=== PATIENT | male | born 1940 | race Caucasian/White ===

== ENCOUNTER 2023-08-03 15:39 | Outpatient (CLI) | payer MEDICARE ==
[2023-08-04] MEDS ORDERED: LOSA1TAB39 PO (18:46)
[2023-08-04] MEDS ORDERED: ATOR40TA72 PO (18:46)
[2023-08-04] MEDS ORDERED: MELO-102 PO (18:46)
[2023-08-04] MEDS ORDERED: CEPH-585 PO (18:46)
[2023-08-04] MEDS ORDERED: DICY-19 PO (18:46)
[2023-08-04] MEDS ORDERED: LEVO25TA7 PO (18:46)
== END 2023-08-03 23:59 | disposition home or self-care (01) ==
LOC: RAD 15:39
PROVIDERS: ATTEND Internal Medicine
DX: R10.33 Periumbilical pain (principal); I51.7 Cardiomegaly; Z90.49 Acquired absence of other specified parts of digestive tract
CPT/HCPCS: 74176

== ENCOUNTER 2023-08-04 14:28 | Inpatient (IN) | payer MEDICARE ==
[~2023-08-04] VITALS: Ht 165.1 cm; Wt 79.5 kg
[2023-08-04] VITALS (13 sets, daily range): BP systolic 97–160; BP diastolic 48–93; PULSE 61–82; RESP 15–20; TEMP 98.5; O2SAT 93–98
[2023-08-04] MEDS ORDERED: piperacillin/tazo 4.5gm/100ml 100 ML IV ONE (15:00)
[2023-08-04] MEDS ORDERED: diltiazem 5mg/ml 5ml inj. IV ONE (16:00)
[2023-08-04] MEDS ORDERED: normal saline 500ml IV soln 500 ML IV ONE (16:00)
[2023-08-04 16:58] LABS: BASOPHILS # (AUTO) 0.1 X10'3 (0-0.2); BASOPHILS % (AUTO) 0.6 % (0-1); EOSINOPHILS % (AUTO) 0.2 % (0-6); HEMATOCRIT 40.8 % (42.0-52.0); HEMOGLOBIN 13.7 g/dl (14.0-17.9); LYMPHOCYTES # (AUTO) 1.1 X10'3 (1.1-4.8); LYMPHOCYTES % (AUTO) 12.6 % (21-51); MEAN CORPUSCULAR HEMOGLOBIN 29.8 PG (27.0-31.0); MEAN CORPUSCULAR HGB CONC 33.5 g/dL (33.0-36.5); MEAN CORPUSCULAR VOLUME 88.9 FL (78-98); MEAN PLATELET VOLUME 9.3 FL (7.4-10.4); MONOCYTES # (AUTO) 0.7 X10'3 (0-0.9); MONOCYTES % (AUTO) 7.9 % (2-12); NEUTROPHILS % (AUTO) 78.7 % (42-75); PLATELET COUNT 151 X10'3 (140-440); RED BLOOD COUNT 4.58 X10'6 (4.70-6.10); RED CELL DISTRIBUTION WIDTH 12.9 % (11.5-14.5); WHITE BLOOD COUNT 8.9 X10'3 (4.5-11.0)
[2023-08-04] MEDS ORDERED: potassium Cl 40MEQ/1/2NS 520ml 520 ML IV PRN (17:10)
[2023-08-04] MEDS ORDERED: acetaminophen 325mg tablet PO PRN ×2 (17:10)
[2023-08-04] MEDS ORDERED: HYDROcodone/acetaminophen 5mg/325mg tablet PO PRN (17:10)
[2023-08-04] MEDS ORDERED: ondansetron/PF 4mg/2ml inj IV PRN ×2 (17:10→18:50)
[2023-08-04] MEDS: normal saline 1000ml 1,000 ML IV SCH (17:10)
[2023-08-04] MEDS ORDERED: magnesium 4gm in 100ml NS 100 ML IV PRN (17:10)
[2023-08-04] MEDS ORDERED: magnesium hydroxide 30ml (MOM) UD suspension PO PRN (17:10)
[2023-08-04] MEDS ORDERED: magnesium Cl slow-release 64mg tablet PO PRN (17:10)
[2023-08-04] MEDS ORDERED: potassium Cl 20 mEq SR tablet PO PRN ×2 (17:10)
[2023-08-04] MEDS ORDERED: HYDROcodone/acetaminophen 10/325mg tab PO PRN (17:10)
[2023-08-04] MEDS ORDERED: magnesium 2GM in 50ml NS 50 ML IV PRN (17:10)
[2023-08-04 17:27] LABS: APTT 29 SECONDS (22-32); PROTHROMBIN TIME 10.9 SECONDS (9.0-12.0)
[2023-08-04 17:37] LABS: ALANINE AMINOTRANSFERASE 35 U/L (12-78); ALBUMIN 3.6 G/DL (3.4-5.0); ALKALINE PHOSPHATASE 64 IU/L (46-116); ANION GAP 3 (8-16); ASPARTATE AMINO TRANSFERASE 40 U/L (10-37); BILIRUBIN,TOTAL 1.2 MG/DL (0.1-1.0); BLOOD UREA NITROGEN 28 MG/DL (7-18); BUN/CREATININE RATIO 28.9 (10.0-20.0); CALCIUM 8.9 MG/DL (8.5-10.1); CHLORIDE 99 MMOL/L (99-107); CREATININE 0.97 MG/DL (0.60-1.10); GLUCOSE 100 MG/DL (70-104); POTASSIUM 3.5 MMOL/L (3.5-5.1); SODIUM 137 MMOL/L (135-145); TOTAL CARBON DIOXIDE 34.6 MMOL/L (24-32); TOTAL PROTEIN 7.2 G/DL (6.4-8.2); eCRCL 50 ML/MIN; eGFR 74 ML/MIN
[2023-08-04 17:39] LABS: MAGNESIUM 2.2 MG/DL (1.5-2.4); PHOSPHORUS 2.8 MG/DL (2.3-4.5); PRO BRAIN NATRIURETIC PEPTIDE 387 PG/ML (0-450)
[2023-08-04 18:23] LABS: BILIRUBIN,URINE NEGATIVE (Neg); CLARITY,URINE CLEAR (Clear); COLOR,URINE YELLOW (Yellow); GLUCOSE, URINE NEGATIVE (Neg); KETONES,URINE NEGATIVE (Neg); LEUKOCYTE ESTERASE ,URINE NEGATIVE (Neg); NITRITES, URINE NEGATIVE (Neg); OCCULT BLOOD,URINE NEGATIVE (Neg); PROTEIN,URINE NEGATIVE (Neg)
[2023-08-04 18:26] LABS: HEMOGLOBIN A1C 5.5 % (4.5-6.2)
[2023-08-04 18:30] LABS: UA COLLECTION TYPE CLN CATCH MIDSTREAM
[2023-08-04] MEDS ORDERED: MELO-102 PO (18:46)
[2023-08-04] MEDS ORDERED: LEVO25TA7 PO (18:46)
[2023-08-04] MEDS ORDERED: ATOR40TA72 PO (18:46)
[2023-08-04] MEDS ORDERED: CEPH-585 PO (18:46)
[2023-08-04] MEDS ORDERED: LOSA1TAB39 PO (18:46)
[2023-08-04] MEDS ORDERED: DICY-19 PO (18:46)
[2023-08-04] MEDS ORDERED: morphine 4 MG/ML inj SYRINge IV PRN (18:50)
[2023-08-04] MEDS ORDERED: enalaprilat dihydrate 2.5mg/2ml vial IV PRN (18:50)
[2023-08-04] MEDS ORDERED: ringers solution, lacted 1,000 ML IV SCH (18:50)
[2023-08-04] MEDS ORDERED: morphine 2 MG/ML inj. syringe IV PRN (18:50)
[2023-08-04] MEDS ORDERED: labetalol 20mg/4ml (5mg/ml) syringe IV PRN (18:50)
[2023-08-04] MEDS ORDERED: meperidine/PF 25mg/ml syringe IV PRN ×3 (18:50)
[2023-08-04] MEDS ORDERED: proCHLORperazine 10 MG/2 ml inj IV PRN (18:50)
[2023-08-04] MEDS ORDERED: BUPIVAcaine 2.5mg/ml inj 50ml vial (contains preservative) ONE (18:55)
[2023-08-04] MEDS ORDERED: sevoflurane 250ml liquid IH ONE (19:07)
[2023-08-04] MEDS ORDERED: neostigmine methylsulfate 1 MG/ML 10ml vial ONE (19:07)
[2023-08-04] MEDS ORDERED: glycopyrrolate 0.2mg/ml inj ONE (19:07)
[2023-08-04] MEDS ORDERED: fentaNYL/PF 50MCG/1 ML 2ML syringe ONE (19:20)
[2023-08-04] MEDS ORDERED: midazolam 1 mg/ML 2ml injection ONE (19:20)
[2023-08-04] MEDS ORDERED: propofol inj 20 ML IV ONE (19:26)
[2023-08-04] MEDS ORDERED: LIDOcaine 2% (20mg/ml) 5ml vial ONE (19:26)
[2023-08-04] MEDS ORDERED: ePHEDrine 50MG/ML INJ. ONE (19:45)
[2023-08-04] MEDS ORDERED: rocuronium 10mg/ml inj IV ONE (19:45)
[2023-08-04] MEDS ORDERED: BUPIVAcaine/PF 2.5mg/ml (0.25%) 10ml vial ONE (20:32)
[2023-08-04] MEDS ORDERED: BUPIVACAINE liposomal/PF 13.3 MG/ML vial IM ONE (20:33)
[2023-08-04] MEDS ORDERED: naloxone 0.4 mg/ml inj IV PRN (20:50)
[2023-08-04] MEDS ORDERED: HYDROmorphone inj. 0.5 MG/0.5 ML DISP.SYRIN SQ PRN (20:50)
[2023-08-04] MEDS ORDERED: dexamethasone sod phosphate 4mg/ml inj. ONE (20:55)
[2023-08-04] MEDS ORDERED: ondansetron/PF 4mg/2ml inj ONE (20:55)
[2023-08-04] MEDS ORDERED: nitroGLYCERIN 0.4mg SUBLingual tab SL PRN (21:50)
[2023-08-04 21:51] LABS: ALANINE AMINOTRANSFERASE 30 U/L (12-78); ALBUMIN/GLOBULIN RATIO 0.9 (1.1-1.5); ALKALINE PHOSPHATASE 58 IU/L (46-116); ANION GAP 7 (8-16); ASPARTATE AMINO TRANSFERASE 31 U/L (10-37); BILIRUBIN,TOTAL 1.4 MG/DL (0.1-1.0); BLOOD UREA NITROGEN 26 MG/DL (7-18); CALCIUM 8.1 MG/DL (8.5-10.1); CHLORIDE 100 MMOL/L (99-107); CREATININE 1.04 MG/DL (0.60-1.10); GLUCOSE 112 MG/DL (70-104); POTASSIUM 3.4 MMOL/L (3.5-5.1); SODIUM 137 MMOL/L (135-145); TOTAL CARBON DIOXIDE 30.1 MMOL/L (24-32); TOTAL PROTEIN 6.2 G/DL (6.4-8.2); eCRCL 47 ML/MIN; eGFR 68 ML/MIN
[2023-08-04] MEDS: K and/or MAG REPLACEMENT MC SCH (23:32)
[2023-08-05] VITALS (12 sets, daily range): BP systolic 99–151; BP diastolic 52–85; PULSE 62–79; RESP 12–18; TEMP 97.7–99.5; O2SAT 94–99
[2023-08-05] MEDS: normal saline 1000ml 1,000 ML IV SCH ×2 (02:04→14:23)
[2023-08-05] MEDS ORDERED: piperacillin/tazo 4.5gm/100ml 100 ML IV SCH (03:00)
[2023-08-05] MEDS: HYDROcodone/acetaminophen 10/325mg tab PO PRN ×3 (05:39→17:05)
[2023-08-05 06:08] LABS: BASOPHILS % (AUTO) 0.1 % (0-1); EOSINOPHILS % (AUTO) 0 % (0-6); HEMATOCRIT 38.2 % (42.0-52.0); HEMOGLOBIN 12.6 g/dl (14.0-17.9); LYMPHOCYTES # (AUTO) 0.4 X10'3 (1.1-4.8); LYMPHOCYTES % (AUTO) 5.3 % (21-51); MEAN CORPUSCULAR HEMOGLOBIN 29.6 PG (27.0-31.0); MEAN CORPUSCULAR HGB CONC 32.9 g/dL (33.0-36.5); MEAN PLATELET VOLUME 9.2 FL (7.4-10.4); MONOCYTES # (AUTO) 0.2 X10'3 (0-0.9); MONOCYTES % (AUTO) 2.2 % (2-12); NEUTROPHILS # (AUTO) 7.7 X10'3 (1.8-7.7); NEUTROPHILS % (AUTO) 92.4 % (42-75); PLATELET COUNT 141 X10'3 (140-440); RED BLOOD COUNT 4.24 X10'6 (4.70-6.10); RED CELL DISTRIBUTION WIDTH 13.3 % (11.5-14.5); WHITE BLOOD COUNT 8.4 X10'3 (4.5-11.0)
[2023-08-05 06:23] LABS: ALANINE AMINOTRANSFERASE 39 U/L (12-78); ALBUMIN 2.9 G/DL (3.4-5.0); ALKALINE PHOSPHATASE 60 IU/L (46-116); ANION GAP 9 (8-16); ASPARTATE AMINO TRANSFERASE 34 U/L (10-37); BILIRUBIN,TOTAL 1.1 MG/DL (0.1-1.0); BLOOD UREA NITROGEN 26 MG/DL (7-18); BUN/CREATININE RATIO 27.7 (10.0-20.0); CALCIUM 7.9 MG/DL (8.5-10.1); CHLORIDE 99 MMOL/L (99-107); CHOL/HDL RATIO 2.3 (0.00-4.99); CHOLESTEROL 122 MG/DL (0-200); CREATININE 0.94 MG/DL (0.60-1.10); GLUCOSE 134 MG/DL (70-104); HDL CHOLESTEROL 54 MG/DL (35-60); LDL CHOLESTEROL 48 MG/DL (50-100); MAGNESIUM 2.1 MG/DL (1.5-2.4); PHOSPHORUS 5.1 MG/DL (2.3-4.5); POTASSIUM 4.1 MMOL/L (3.5-5.1); SODIUM 138 MMOL/L (135-145); TOTAL CARBON DIOXIDE 29.7 MMOL/L (24-32); TOTAL PROTEIN 5.9 G/DL (6.4-8.2); TRIGLYCERIDES 56 MG/DL (20-135); eCRCL 52 ML/MIN; eGFR 77 ML/MIN
[2023-08-05] MEDS: K and/or MAG REPLACEMENT MC SCH ×2 (06:49→20:00)
[2023-08-05] MEDS: metroNIDAZOLE-Flagyl 500mg/NS 100 ML IV SCH ×4 (07:35→23:43)
[2023-08-05] MEDS: CefTRIAXone/D5W-Rocephin 1gm 50 ML IV SCH (08:51)
[2023-08-05] MEDS: mag hydrox/Alum hydrox/simeth 30ml oral suspension PO PRN ×2 (10:06→19:21)
[2023-08-05] MEDS ORDERED: pantoprazole 40 MG vial IV ONE (19:15)
[2023-08-06] MEDS: HYDROcodone/acetaminophen 10/325mg tab PO PRN ×5 (00:41→23:46)
[2023-08-06 06:00] VITALS: BP 137/78; PULSE 67; RESP 16; TEMP 97.2; O2SAT 92
[2023-08-06 06:38] LABS: BASOPHILS % (AUTO) 0.2 % (0-1); EOSINOPHILS % (AUTO) 0.2 % (0-6); HEMATOCRIT 38.6 % (42.0-52.0); HEMOGLOBIN 12.9 g/dl (14.0-17.9); LYMPHOCYTES % (AUTO) 12.7 % (21-51); MEAN CORPUSCULAR HEMOGLOBIN 30.1 PG (27.0-31.0); MEAN CORPUSCULAR HGB CONC 33.4 g/dL (33.0-36.5); MEAN PLATELET VOLUME 9.4 FL (7.4-10.4); MONOCYTES # (AUTO) 0.7 X10'3 (0-0.9); NEUTROPHILS # (AUTO) 6.4 X10'3 (1.8-7.7); NEUTROPHILS % (AUTO) 78.9 % (42-75); PLATELET COUNT 143 X10'3 (140-440); RED BLOOD COUNT 4.28 X10'6 (4.70-6.10); RED CELL DISTRIBUTION WIDTH 13.5 % (11.5-14.5); WHITE BLOOD COUNT 8.2 X10'3 (4.5-11.0)
[2023-08-06] MEDS: K and/or MAG REPLACEMENT MC SCH ×2 (06:47→19:50)
[2023-08-06 07:03] LABS: ALANINE AMINOTRANSFERASE 32 U/L (12-78); ALBUMIN 3.1 G/DL (3.4-5.0); ALBUMIN/GLOBULIN RATIO 0.8 (1.1-1.5); ALKALINE PHOSPHATASE 60 IU/L (46-116); ANION GAP 5 (8-16); ASPARTATE AMINO TRANSFERASE 32 U/L (10-37); BILIRUBIN,TOTAL 0.6 MG/DL (0.1-1.0); BLOOD UREA NITROGEN 25 MG/DL (7-18); BUN/CREATININE RATIO 21.6 (10.0-20.0); CALCIUM 8.4 MG/DL (8.5-10.1); CHLORIDE 98 MMOL/L (99-107); CREATININE 1.16 MG/DL (0.60-1.10); GLUCOSE 112 MG/DL (70-104); MAGNESIUM 2.4 MG/DL (1.5-2.4); PHOSPHORUS 2.7 MG/DL (2.3-4.5); POTASSIUM 3.6 MMOL/L (3.5-5.1); SODIUM 138 MMOL/L (135-145); THYROID STIMULATING HORMONE 1.68 ulU/ml (0.34-4.50); TOTAL PROTEIN 6.9 G/DL (6.4-8.2); eCRCL 42 ML/MIN; eGFR 60 ML/MIN
[2023-08-06] MEDS: HYDROchlorothiazide 25mg tablet PO SCH (07:23)
[2023-08-06] MEDS: levoTHYROXINE 25mcg tablet PO SCH (07:23)
[2023-08-06] MEDS: atorvastatin 20mg tablet PO SCH (07:24)
[2023-08-06] MEDS: losartan 50mg tablet PO SCH (07:24)
[2023-08-06] MEDS: metroNIDAZOLE-Flagyl 500mg/NS 100 ML IV SCH ×2 (07:31→17:13)
[2023-08-06] MEDS: CefTRIAXone/D5W-Rocephin 1gm 50 ML IV SCH (09:15)
[2023-08-06 10:00] VITALS: BP 134/82; PULSE 68; RESP 20; TEMP 97.4; O2SAT 89
[2023-08-06] MEDS ORDERED: HYDROmorphone inj. 0.5 MG/0.5 ML DISP.SYRIN IV PRN (13:15)
[2023-08-06] MEDS: ondansetron/PF 4mg/2ml inj IV PRN (17:27)
[2023-08-06 18:00] VITALS: BP 109/65; PULSE 43; RESP 14; TEMP 97; O2SAT 78
[2023-08-06] MEDS: mag hydrox/Alum hydrox/simeth 30ml oral suspension PO PRN (20:59)
[2023-08-06 22:00] VITALS: BP 99/57; PULSE 94; RESP 15; TEMP 97.4; O2SAT 92
[2023-08-07] MEDS: metroNIDAZOLE-Flagyl 500mg/NS 100 ML IV SCH ×3 (00:42→19:22)
[2023-08-07 05:00] VITALS: BP 125/67; PULSE 68; RESP 17; TEMP 98.7; O2SAT 96
[2023-08-07 06:59] LABS: BASOPHILS % (AUTO) 0.5 % (0-1); EOSINOPHILS # (AUTO) 0.1 X10'3 (0-0.9); EOSINOPHILS % (AUTO) 1.3 % (0-6); HEMATOCRIT 40.5 % (42.0-52.0); HEMOGLOBIN 13.3 g/dl (14.0-17.9); LYMPHOCYTES # (AUTO) 1.1 X10'3 (1.1-4.8); LYMPHOCYTES % (AUTO) 15.2 % (21-51); MEAN CORPUSCULAR HEMOGLOBIN 29.6 PG (27.0-31.0); MEAN CORPUSCULAR VOLUME 89.7 FL (78-98); MEAN PLATELET VOLUME 10.1 FL (7.4-10.4); MONOCYTES # (AUTO) 0.7 X10'3 (0-0.9); MONOCYTES % (AUTO) 9.3 % (2-12); NEUTROPHILS # (AUTO) 5.6 X10'3 (1.8-7.7); NEUTROPHILS % (AUTO) 73.7 % (42-75); PLATELET COUNT 184 X10'3 (140-440); RED BLOOD COUNT 4.51 X10'6 (4.70-6.10); RED CELL DISTRIBUTION WIDTH 13.3 % (11.5-14.5); WHITE BLOOD COUNT 7.5 X10'3 (4.5-11.0)
[2023-08-07 07:12] LABS: ALANINE AMINOTRANSFERASE 28 U/L (12-78); ALBUMIN 2.9 G/DL (3.4-5.0); ALBUMIN/GLOBULIN RATIO 0.8 (1.1-1.5); ALKALINE PHOSPHATASE 54 IU/L (46-116); ANION GAP 4 (8-16); ASPARTATE AMINO TRANSFERASE 20 U/L (10-37); BILIRUBIN,TOTAL 0.5 MG/DL (0.1-1.0); BLOOD UREA NITROGEN 30 MG/DL (7-18); CALCIUM 8.8 MG/DL (8.5-10.1); CHLORIDE 96 MMOL/L (99-107); GLUCOSE 103 MG/DL (70-104); MAGNESIUM 2.5 MG/DL (1.5-2.4); PHOSPHORUS 3.6 MG/DL (2.3-4.5); POTASSIUM 3.6 MMOL/L (3.5-5.1); SODIUM 136 MMOL/L (135-145); TOTAL CARBON DIOXIDE 36.2 MMOL/L (24-32); TOTAL PROTEIN 6.5 G/DL (6.4-8.2); eCRCL 49 ML/MIN; eGFR 71 ML/MIN
[2023-08-07] MEDS: CefTRIAXone/D5W-Rocephin 1gm 50 ML IV SCH (07:18)
[2023-08-07] MEDS: levoTHYROXINE 25mcg tablet PO SCH (07:21)
[2023-08-07] MEDS: atorvastatin 20mg tablet PO SCH (07:21)
[2023-08-07] MEDS: HYDROchlorothiazide 25mg tablet PO SCH (07:22)
[2023-08-07] MEDS: losartan 50mg tablet PO SCH (07:27)
[2023-08-07 08:00] VITALS: RESP 16; O2SAT 95; O2SAT 96
[2023-08-07] MEDS: K and/or MAG REPLACEMENT MC SCH ×2 (08:00→20:00)
[2023-08-07 10:00] VITALS: BP 121/73; PULSE 85; RESP 16; TEMP 98; O2SAT 96
[2023-08-07] MEDS: HYDROcodone/acetaminophen 10/325mg tab PO PRN ×2 (12:30→22:29)
[2023-08-07] MEDS: ondansetron/PF 4mg/2ml inj IV PRN (14:08)
[2023-08-07 18:00] VITALS: BP 119/68; PULSE 100; RESP 20; TEMP 97.7; O2SAT 94
[2023-08-07 22:00] VITALS: BP 108/67; PULSE 101; RESP 18; TEMP 97.8; O2SAT 91
[2023-08-07] MEDS: heparin, porcine 5000 units/ml vial SQ SCH (22:30)
[2023-08-08] MEDS: metroNIDAZOLE-Flagyl 500mg/NS 100 ML IV SCH (00:53)
[2023-08-08 06:00] VITALS: BP 84/58; PULSE 67; RESP 17; TEMP 97.9; O2SAT 97
[2023-08-08 08:00] VITALS: RESP 16; O2SAT 94
[2023-08-08] MEDS: heparin, porcine 5000 units/ml vial SQ SCH (08:00)
[2023-08-08] MEDS: K and/or MAG REPLACEMENT MC SCH (08:00)
[2023-08-08] MEDS: HYDROchlorothiazide 25mg tablet PO SCH (08:15)
[2023-08-08] MEDS: losartan 50mg tablet PO SCH (08:15)
[2023-08-08] MEDS: atorvastatin 20mg tablet PO SCH (08:16)
[2023-08-08] MEDS: levoTHYROXINE 25mcg tablet PO SCH (08:16)
[2023-08-08 08:34] LABS: BASOPHILS % (AUTO) 0.8 % (0-1); EOSINOPHILS # (AUTO) 0.1 X10'3 (0-0.9); EOSINOPHILS % (AUTO) 0.9 % (0-6); HEMOGLOBIN 13.4 g/dl (14.0-17.9); LYMPHOCYTES # (AUTO) 0.9 X10'3 (1.1-4.8); LYMPHOCYTES % (AUTO) 14.5 % (21-51); MEAN CORPUSCULAR HEMOGLOBIN 29.8 PG (27.0-31.0); MEAN CORPUSCULAR HGB CONC 33.5 g/dL (33.0-36.5); MEAN CORPUSCULAR VOLUME 88.8 FL (78-98); MEAN PLATELET VOLUME 9.7 FL (7.4-10.4); MONOCYTES # (AUTO) 0.7 X10'3 (0-0.9); MONOCYTES % (AUTO) 10.4 % (2-12); NEUTROPHILS # (AUTO) 4.6 X10'3 (1.8-7.7); NEUTROPHILS % (AUTO) 73.4 % (42-75); PLATELET COUNT 181 X10'3 (140-440); RED CELL DISTRIBUTION WIDTH 13.3 % (11.5-14.5); WHITE BLOOD COUNT 6.3 X10'3 (4.5-11.0)
[2023-08-08 08:57] LABS: ALANINE AMINOTRANSFERASE 23 U/L (12-78); ALBUMIN/GLOBULIN RATIO 0.8 (1.1-1.5); ALKALINE PHOSPHATASE 55 IU/L (46-116); ANION GAP 7 (8-16); ASPARTATE AMINO TRANSFERASE 27 U/L (10-37); BILIRUBIN,TOTAL 0.5 MG/DL (0.1-1.0); BLOOD UREA NITROGEN 34 MG/DL (7-18); BUN/CREATININE RATIO 32.1 (10.0-20.0); CALCIUM 9.2 MG/DL (8.5-10.1); CHLORIDE 93 MMOL/L (99-107); CREATININE 1.06 MG/DL (0.60-1.10); GLUCOSE 106 MG/DL (70-104); MAGNESIUM 2.4 MG/DL (1.5-2.4); POTASSIUM 3.8 MMOL/L (3.5-5.1); SODIUM 134 MMOL/L (135-145); TOTAL CARBON DIOXIDE 34.3 MMOL/L (24-32); TOTAL PROTEIN 6.7 G/DL (6.4-8.2); eCRCL 46 ML/MIN; eGFR 67 ML/MIN
[2023-08-08 10:00] VITALS: BP 113/73; PULSE 78; RESP 16; TEMP 97.6; O2SAT 92
[2023-08-08 14:10] VITALS: RESP 16
[2023-08-08] MEDS: HYDROcodone/acetaminophen 10/325mg tab PO PRN (14:10)
[2023-08-08] MEDS ORDERED: HYDR-3965 PO (14:36)
== END 2023-08-08 16:56 | disposition home or self-care (01) | DRG 399 ==
LOC: ER 14:28 → ED HOLD 17:13 → ORTHO 4S 22:05
PROVIDERS: ADMIT Family Medicine; ATTEND Family Medicine
PROC: 3E0T3BZ Introduction of Anesthetic Agent into Peripheral Nerves and Plexi, Percutaneous Approach (ICD-10-PCS; 2023-08-04)
PROC: 0DTJ0ZZ Resection of Appendix, Open Approach (ICD-10-PCS; principal; 2023-08-04 19:07)
DX: K35.80 Unspecified acute appendicitis (principal); E07.9 Disorder of thyroid, unspecified; E11.9 Type 2 diabetes mellitus without complications; E78.5 Hyperlipidemia, unspecified; I10 Essential (primary) hypertension; D64.9 Anemia, unspecified; E78.00 Pure hypercholesterolemia, unspecified; Z90.49 Acquired absence of other specified parts of digestive tract; R74.01 Elevation of levels of liver transaminase levels; I67.9 Cerebrovascular disease, unspecified
CPT/HCPCS: 36415; 71045; 74018; 74176; 80053; 80061; 81003; 82948; 83036; 83605; 83735; 83880; 84100; 84145; 84443; 84484; 85025; 85610; 85730; 87040; 88304; 93005; 97116; 97161; 97530; 99285; A4215; A4314; A4615; A4618; A6212; A6253; A6402; A6407; A6449; A7000; C9113; C9290; G0378; J0696; J1100; J1170; J1644; J2250; J2270; J2405; J2543; J2704; J2710; J3010; J3490; J7030; J7040; J7120

== ENCOUNTER 2023-08-25 12:38 | Observation (INO) | payer MEDICARE ==
[~2023-08-25] VITALS: Ht 165.1 cm; Wt 76.8 kg
[~2023-08-25 12:38] MED LIST: ATOR40TA72 PO; HYDR-3965 PO; LEVO25TA7 PO; LOSA1TAB39 PO
[2023-08-25] MEDS: dextrose 5%-normal saline 1,000 ML IV SCH (14:10)
[2023-08-25 14:12] LABS: APTT 28 SECONDS (22-32); PROTHROMBIN TIME 10.3 SECONDS (9.0-12.0)
[2023-08-25 14:17] LABS: ALANINE AMINOTRANSFERASE 37 U/L (12-78); ALBUMIN 3.4 G/DL (3.4-5.0); ALBUMIN/GLOBULIN RATIO 0.8 (1.1-1.5); ALKALINE PHOSPHATASE 77 IU/L (46-116); ANION GAP 2 (8-16); ASPARTATE AMINO TRANSFERASE 22 U/L (10-37); BILIRUBIN,TOTAL 1.2 MG/DL (0.1-1.0); BLOOD UREA NITROGEN 29 MG/DL (7-18); BUN/CREATININE RATIO 25.7 (10.0-20.0); CALCIUM 8.5 MG/DL (8.5-10.1); CHLORIDE 99 MMOL/L (99-107); CREATININE 1.13 MG/DL (0.60-1.10); GLUCOSE 118 MG/DL (70-104); LIPASE 45 U/L (16-77); POTASSIUM 3.7 MMOL/L (3.5-5.1); SODIUM 139 MMOL/L (135-145); TOTAL CARBON DIOXIDE 37.6 MMOL/L (24-32); TOTAL PROTEIN 7.7 G/DL (6.4-8.2); eGFR 62 ML/MIN
[2023-08-25 14:26] LABS: BASOPHILS # (AUTO) 0.1 X10'3 (0-0.2); BASOPHILS % (AUTO) 0.9 % (0-1); EOSINOPHILS % (AUTO) 0.6 % (0-6); HEMATOCRIT 39.5 % (42.0-52.0); LYMPHOCYTES # (AUTO) 0.9 X10'3 (1.1-4.8); MEAN CORPUSCULAR HEMOGLOBIN 29.4 PG (27.0-31.0); MEAN CORPUSCULAR HGB CONC 32.9 g/dL (33.0-36.5); MEAN CORPUSCULAR VOLUME 89.5 FL (78-98); MEAN PLATELET VOLUME 9.3 FL (7.4-10.4); MONOCYTES # (AUTO) 0.8 X10'3 (0-0.9); MONOCYTES % (AUTO) 11.7 % (2-12); NEUTROPHILS # (AUTO) 4.7 X10'3 (1.8-7.7); NEUTROPHILS % (AUTO) 72.8 % (42-75); PLATELET COUNT 185 X10'3 (140-440); RED BLOOD COUNT 4.42 X10'6 (4.70-6.10); RED CELL DISTRIBUTION WIDTH 13.4 % (11.5-14.5); WHITE BLOOD COUNT 6.4 X10'3 (4.5-11.0)
[2023-08-25 14:30] VITALS: BP 125/67; PULSE 77; RESP 15; TEMP 97.9; O2SAT 87
[2023-08-25] MEDS ORDERED: PERFLUTREN PROTEIN-A MICROSPHR (Optison) 0.22 MG/ML 3ML VIAL IV ONE (17:05)
[2023-08-25] MEDS ORDERED: iohexol 350MG/ML 100ml bottle IV ONE (17:51)
[2023-08-25 18:00] VITALS: BP 115/63; PULSE 69; RESP 19; TEMP 98.1; O2SAT 98
[2023-08-25 19:47] LABS: PRO BRAIN NATRIURETIC PEPTIDE 210 PG/ML (0-450)
[2023-08-25] MEDS: diatr meglu/diatrizoate 30ml oral sol.-(3 dose) bottle PO SCH (21:51)
[2023-08-25] MEDS: HYDROcodone/acetaminophen 5mg/325mg tablet PO PRN (21:58)
[2023-08-25 22:00] VITALS: BP 118/72; PULSE 69; RESP 16; TEMP 98.1; O2SAT 96
[2023-08-25] MEDS: heparin 25,000 UNIT/250ml bag 250 ML IV PRN (22:20)
[2023-08-25] MEDS: heparin 10,000 units/1 ML INJ IV ONE (22:23)
[2023-08-26 02:00] VITALS: BP 125/66; PULSE 69; RESP 18; TEMP 97.5; O2SAT 96
[2023-08-26 05:14] LABS: BASOPHILS # (AUTO) 0.1 X10'3 (0-0.2); BASOPHILS % (AUTO) 1.4 % (0-1); EOSINOPHILS # (AUTO) 0.1 X10'3 (0-0.9); EOSINOPHILS % (AUTO) 1.1 % (0-6); HEMATOCRIT 38.4 % (42.0-52.0); HEMOGLOBIN 12.8 g/dl (14.0-17.9); LYMPHOCYTES # (AUTO) 1.5 X10'3 (1.1-4.8); LYMPHOCYTES % (AUTO) 23.2 % (21-51); MEAN CORPUSCULAR HEMOGLOBIN 29.8 PG (27.0-31.0); MEAN CORPUSCULAR HGB CONC 33.3 g/dL (33.0-36.5); MEAN CORPUSCULAR VOLUME 89.4 FL (78-98); MONOCYTES % (AUTO) 15.5 % (2-12); NEUTROPHILS # (AUTO) 3.8 X10'3 (1.8-7.7); NEUTROPHILS % (AUTO) 58.8 % (42-75); PLATELET COUNT 170 X10'3 (140-440); RED CELL DISTRIBUTION WIDTH 13.4 % (11.5-14.5); WHITE BLOOD COUNT 6.4 X10'3 (4.5-11.0)
[2023-08-26 05:52] LABS: LARGE PLATELETS FEW; PLATELET ESTIMATE NORMAL; TOTAL CELLS COUNTED 100
[2023-08-26 06:00] VITALS: BP 105/54; PULSE 60; RESP 16; TEMP 97.5; O2SAT 97
[2023-08-26 07:00] VITALS: RESP 12
[2023-08-26] MEDS: pantoprazole 40mg Tablet.DR PO SCH (07:30)
[2023-08-26] MEDS: heparin 10,000 units/1 ML INJ IV PRN (09:49)
[2023-08-26 11:00] VITALS: BP 145/64; PULSE 60; RESP 14; TEMP 97.1; O2SAT 99
[2023-08-26 18:00] VITALS: BP 138/60; PULSE 61; RESP 16; TEMP 97.7; O2SAT 90
[2023-08-26] MEDS: apixaban 5mg tablet PO SCH (19:38)
[2023-08-26] MEDS: magnesium hydroxide 30ml (MOM) UD suspension PO SCH (19:39)
[2023-08-26 21:45] VITALS: BP 144/81; PULSE 71; RESP 18; TEMP 97.6; O2SAT 91
[2023-08-27] VITALS (7 sets, daily range): BP systolic 112–126; BP diastolic 63–73; PULSE 62–80; RESP 14–18; TEMP 97.5–98.5; O2SAT 93–99
[2023-08-27 08:06] LABS: BASOPHILS % (AUTO) 0.8 % (0-1); EOSINOPHILS # (AUTO) 0.1 X10'3 (0-0.9); EOSINOPHILS % (AUTO) 1.5 % (0-6); HEMATOCRIT 38.4 % (42.0-52.0); HEMOGLOBIN 12.8 g/dl (14.0-17.9); LYMPHOCYTES # (AUTO) 0.8 X10'3 (1.1-4.8); LYMPHOCYTES % (AUTO) 14.5 % (21-51); MEAN CORPUSCULAR HEMOGLOBIN 29.9 PG (27.0-31.0); MEAN CORPUSCULAR HGB CONC 33.2 g/dL (33.0-36.5); MEAN CORPUSCULAR VOLUME 89.9 FL (78-98); MEAN PLATELET VOLUME 9.1 FL (7.4-10.4); MONOCYTES # (AUTO) 0.6 X10'3 (0-0.9); MONOCYTES % (AUTO) 10.8 % (2-12); NEUTROPHILS # (AUTO) 3.8 X10'3 (1.8-7.7); NEUTROPHILS % (AUTO) 72.4 % (42-75); PLATELET COUNT 184 X10'3 (140-440); RED BLOOD COUNT 4.28 X10'6 (4.70-6.10); RED CELL DISTRIBUTION WIDTH 13.6 % (11.5-14.5); WHITE BLOOD COUNT 5.2 X10'3 (4.5-11.0)
[2023-08-28 02:00] VITALS: BP 99/53; PULSE 67; RESP 18; TEMP 97.5; O2SAT 97
[2023-08-28 06:00] VITALS: BP 130/68; PULSE 64; RESP 16; TEMP 97.4; O2SAT 94
[2023-08-28 08:00] VITALS: RESP 16; O2SAT 94
[2023-08-28 08:03] LABS: BASOPHILS # (AUTO) 0.1 X10'3 (0-0.2); BASOPHILS % (AUTO) 1.3 % (0-1); EOSINOPHILS # (AUTO) 0.2 X10'3 (0-0.9); EOSINOPHILS % (AUTO) 3.2 % (0-6); HEMOGLOBIN 12.3 g/dl (14.0-17.9); LYMPHOCYTES # (AUTO) 0.8 X10'3 (1.1-4.8); LYMPHOCYTES % (AUTO) 17.7 % (21-51); MEAN CORPUSCULAR HEMOGLOBIN 29.6 PG (27.0-31.0); MEAN CORPUSCULAR HGB CONC 33.3 g/dL (33.0-36.5); MEAN PLATELET VOLUME 9.3 FL (7.4-10.4); MONOCYTES # (AUTO) 0.4 X10'3 (0-0.9); MONOCYTES % (AUTO) 9.6 % (2-12); NEUTROPHILS # (AUTO) 3.2 X10'3 (1.8-7.7); NEUTROPHILS % (AUTO) 68.2 % (42-75); PLATELET COUNT 183 X10'3 (140-440); RED BLOOD COUNT 4.16 X10'6 (4.70-6.10); RED CELL DISTRIBUTION WIDTH 13.1 % (11.5-14.5); WHITE BLOOD COUNT 4.7 X10'3 (4.5-11.0)
[2023-08-28] MEDS ORDERED: APIX5TAB3 PO (10:17)
[2023-09-02] MEDS ORDERED: apixaban 5mg tablet PO SCH (20:00)
== END 2023-08-28 11:23 | disposition home or self-care (01) ==
LOC: UNDOADMIN 13:03 → PCU 3S 13:03 → OBSVTOIN 17:06 → INTOOBSV 17:06
PROVIDERS: ADMIT Surgery; ATTEND Surgery
DX: I26.99 Other pulmonary embolism without acute cor pulmonale (principal); R10.9 Unspecified abdominal pain; I10 Essential (primary) hypertension; E78.5 Hyperlipidemia, unspecified; I67.9 Cerebrovascular disease, unspecified; Z79.899 Other long term (current) drug therapy
CPT/HCPCS: 36415; 71046; 71275; 74177; 80053; 83690; 83880; 85007; 85025; 85610; 85730; 93005; 93306; 93970; 96361; 96365; 96366; 96376; A6258; G0378; G0379; J1644; J3490; J7042; Q9963; Q9967; A4615

== ENCOUNTER 2025-04-09 11:59 | Outpatient (CLI) | payer MEDICARE ==
[~2025-04-09 11:59] MED LIST changes: +APIX5TAB3 PO; -HYDR-3965 PO
--- NOTE | 2025-04-09 15:20 | VASCULAR REPORT ---
[facility] Vascular Department [facility] [address] [place] [address] [email or web address] [email or web address] DIONICIO Name : TERESA KHAN Date : 04/09/2025 FESTING Accession# : [id number] Birthdate : 1940 Sex : M [employer] Assistant : Lázaro Leal BS, RVT Age : [address] : JACK Preliminary Report The above named patient was referred for a NON-INVASIVE CEREBROVASCULAR EVALUATION. The evaluation includes grayscale imaging, color flow Doppler and spectral analysis of the bilateral carotid and vertebral arteries. Patient L tetihnBilateral OUT-PATIENT Indications Eval of left endarterectomy x10 years ago per patient. Pt states hx of right carotid disease, no surgery performed. Risk Factors Hypertension: Hyperlipidemia Surgery/Intervention Endarterectomy: left Date: 10 years ago per patient Doppler Spectral Velocity Analysis Right Lef pCCA 48/0 cm/s pCCA 129/47 cm/s dCCA 46/8 cm/s dCCA 110/24 cm/s ECA 161/ cm/s ECA 426/ cm/s pICA 18/0 cm/s pICA 88/36 cm/s Albert 133/24 cm/s Albert 86/36 cm/s dICA 44/10 cm/s dICA 77/28 cm/s Vert. 85/29 cm/s Vert. 108/37 cm/s Subcl. 115/ cm/s Subcl. 109/ cm/s ICA/CCA 2.89 ICA/CCA 0.80 Real-Time B-Mode Imaging Area Findings Right Left CCA Plaque Composition Intimal thickening Intimal thickening BIF Plaque Composition Heterogeneous Intimal thickening Plaque Description Irregular ICA Plaque Composition Heterogeneous Intimal thickening Plaque Description Irregular ECA Plaque Composition Intimal thickening Intimal thickening Vertebral Antegrade Antegrade Subclavian Multiphasic Multiphasic Impression: >70% stenosis/near occlusion visualized in the right Internal Carotid Artery. <50% stenosis detected in the left Internal Carotid Artery. >50% stenosis detected per velocity in the left External Carotid Artery. <50% stenosis detected within the right External Carotid Artery and bilateral Common Carotid Arteries. Antegrade flow noted within the Vertebral Arteries bilaterally. Multiphasic waveforms noted within the Subclavian Arteries bilaterally.
== END 2025-04-09 23:59 | disposition home or self-care (01) ==
LOC: VAS 11:59
PROVIDERS: ATTEND Surgery
DX: I65.23 Occlusion and stenosis of bilateral carotid arteries (principal)
CPT/HCPCS: 93880